=== PATIENT | female | born 1930 | race Caucasian/White ===

== ENCOUNTER 2019-06-24 10:03 | Emergency (ER) | payer BC, OTHER ==
[~2019-06-24] VITALS: Ht 157.5 cm; Wt 56.7 kg
[2019-06-24 10:31] VITALS: BP 140/63
--- NOTE | 2019-06-24 10:36 | NUR ---
PT AMBULATED TO ER BED 01
--- NOTE | 2019-06-24 10:45 | NUR ---
88 Y/O F C/C DIZZINESS/NAUSEA X1 DAY. PER DAUGHTER PT HAS NOT BEEN TAKING DM RX X 1 WEEK DUE TO MOVING FROM [place] STATE. PT HARD OF HEARING. PT NKA. HX DM, HTN, FORGETFUL, VERTIGO. RX AMLODOPINE,DONEPEZIL,GLIMEPIRIDE,METFORMIN. NO V/D. SIDE RAIL X1. DAUGHTER AT BEDSIDE.
--- NOTE | 2019-06-24 11:59 | NUR ---
VBG DRAWN AND HANDED TO RT
--- NOTE | 2019-06-24 12:12 | NUR ---
PT RESTING IN BED, SIDE RAIL X1, FAMILY AT BEDSIDE
[2019-06-24 12:15] LABS: BASOPHILS # (AUTO) 0.1 K/uL (0.00-0.22); BASOPHILS % (AUTO) 0.6 % (0.0-2.0); EOSINOPHILS # (AUTO) 0.2 K/uL (0-0.4); EOSINOPHILS % (AUTO) 2.5 % (0.0-4.0); HEMOGLOBIN 11.3 g/dL (12.0-16.0); LYMPHOCYTES # (AUTO) 2.8 K/uL (2.5-16.5); LYMPHOCYTES % (AUTO) 31.2 % (20.5-51.1); MEAN CORPUSCULAR HEMOGLOBIN 29 pg (27-31); MEAN CORPUSCULAR HGB CONC 32 g/dL (33-37); MEAN CORPUSCULAR VOLUME 89.1 fL (80-94); MONOCYTES # (AUTO) 0.6 K/uL (0.8-1.0); MONOCYTES % (AUTO) 6.8 % (1.7-9.3); NEUTROPHILS # (AUTO) 5.3 K/uL (1.8-7.7); NEUTROPHILS % (AUTO) 58.9 % (42.2-75.2); PLATELET COUNT (AUTO) 249 K/uL (140-450); RED BLOOD CELL COUNT(AUTO) 3.93 MIL/uL (4.20-5.40); RED CELL DISTRIBUTION WIDTH 15.6 % (11.6-13.7)
[2019-06-24 12:43] LABS: ALBUMIN 3.4 g/dL (3.4-5.0); ANION GAP 10.7 (8-16); ASPARTATE AMINOTRANSFERASE 10 U/L (15-37); CARBON DIOXIDE 29.3 mmol/L (21-32); CHLORIDE 99 mmol/L (98-107); CREATININE 0.7 mg/dL (0.6-1.3); GLUCOSE 180 mg/dL (74-106); MAGNESIUM 1.9 mg/dL (1.8-2.4); PHOSPHORUS 3.6 mg/dL (2.5-4.9); SODIUM SERUM 135 mmol/L (136-145); TOTAL BILIRUBIN 0.4 mg/dL (0.0-1.0); UREA NITROGEN, BLOOD 17 mg/dL (7-18)
[2019-06-24] MEDS ORDERED: NACL 0.9% 1,000 ML IV ONE (13:25)
--- NOTE | 2019-06-24 15:30 | NUR ---
PT LYING COMFORTABLY IN BED, DAUGHTER AT BEDSIDE. PT DRINKING ENSURE, OK PER DR. ALLEN.
--- NOTE | 2019-06-24 15:58 | NUR ---
PT AMBULATED TO THE WALKER USING 4 WHEEL WALKER, DAUGHTER AMBULATED WITH PT, STEADY GAIT.
[2019-06-24] MEDS ORDERED: ASPIRIN 325 MG TAB PO ONE (16:15)
--- NOTE | 2019-06-24 16:32 | NUR ---
LAB AT BEDSIDE
[2019-06-24] MEDS ORDERED: ACET-2619 PO (17:18)
[2019-06-24] MEDS ORDERED: AMLO2.5T PO (17:18)
[2019-06-24] MEDS ORDERED: SERT100T PO (17:24)
[2019-06-24] MEDS ORDERED: GLIM1TAB7 PO (17:24)
[2019-06-24] MEDS ORDERED: SENN-73 PO (17:24)
[2019-06-24] MEDS ORDERED: TRAZ-343 PO (17:24)
[2019-06-24] MEDS ORDERED: CALC-1030 PO (17:24)
[2019-06-24] MEDS ORDERED: CYAN100T65 PO (17:24)
[2019-06-24] MEDS ORDERED: METF750T PO (17:24)
[2019-06-24] MEDS ORDERED: DONE5TAB6 PO (17:24)
--- NOTE | 2019-06-24 17:57 | NUR ---
Cardiac diet tray requested for pt, ok per Dr. Rangel.
--- NOTE | 2019-06-24 17:57 | NUR ---
pt lying in bed, no distress, pt denies cp.
--- NOTE | 2019-06-24 18:38 | NUR ---
PT AMBULATED TO BATHROOM WITH DAUGHTER VIA 4 WHEEL WALKER, STEADY GATE. PT DENIES PAIN.
--- NOTE | 2019-06-24 19:30 | NUR ---
vss, rr even and unlabored, no distress noted, pt reports 0 pain
--- NOTE | 2019-06-24 20:00 | NUR ---
[facility]. Is being transferred due to INSURANCE REQUEST DX-NSTEMI. Receiving facility has accepting physician and available space. ER physician has signed transfer form. Patient or responsible democrat has agreed to transfer and signed form. Patient belongings inventoried and will be sent with patient. Copy of nursing notes, lab reports, EKG, Physicians Orders and X-rays to be sent with patient. Report called to SHAZIA URBANO at receiving facility. [facility] ambulance service has been called for transfer. ETA is 30 MINUTES.
--- NOTE | 2019-06-24 20:20 | NUR ---
PT LAYING IN BED, RR EVEN AND UNLABORED. PT'S DAUGHTER AT BEDSIDE. DENIES ANY PAIN OR SOB. ALL NEEDS MET.
[2019-06-24 20:40] VITALS: BP 147/61
--- NOTE | 2019-06-24 20:40 | NUR ---
PT PICKED UP BY [facility], PT TO BE TRANSFERRED TO THE [facility], ROOM 2020. ALL BELONGINGS SENT WITH PT.
== END 2019-06-24 20:40 | disposition short-term general hospital (02) ==
LOC: MED 10:03
DX: I21.4 Non-ST elevation (NSTEMI) myocardial infarction (principal); E11.65 Type 2 diabetes mellitus with hyperglycemia; D64.9 Anemia, unspecified; I10 Essential (primary) hypertension; G30.9 Alzheimer's disease, unspecified; F02.80 Dementia in other diseases classified elsewhere, unspecified severity, without behavioral disturbance, psychotic disturbance, mood disturbance, and anxiety; K21.9 Gastro-esophageal reflux disease without esophagitis; F32.9 Major depressive disorder, single episode, unspecified
CPT/HCPCS: 36415; 80053; 81002; 82803; 83735; 84100; 84484; 85025; 93005; 96360; 99284; J7030